=== PATIENT | male | born 1930 | race Caucasian/White ===

== ENCOUNTER 2019-01-24 06:08 | Inpatient (IN) | payer MEDICARE, OTHER ==
[2019-01-24] VITALS (7 sets, daily range): BP systolic 96–101; BP diastolic 50–55; PULSE 65–173; RESP 18; Ht 172.7 cm; Wt 53.8 kg
[~2019-01-24] VITALS: Ht 172.7 cm; Wt 53.8 kg
[2019-01-24] MEDS ORDERED: IPRATROPIUM (NEB) 0.5 MG/2.5 ML AMP INH STA (06:14)
[2019-01-24] MEDS ORDERED: ALBUTEROL 0.5% (NEB) 2.5 MG/0.5 ML AMP INH STA (06:14)
[2019-01-24] MEDS ORDERED: CEFEPIME 2GM/50 ML (PMX) 50 ML IVPB STA (06:29)
[2019-01-24] MEDS ORDERED: SODIUM CHLORIDE 0.9% 1L BAG IV* STA ×2 (06:29→07:32)
[2019-01-24] MEDS ORDERED: VANCOMYCIN 1 GM (PMX) 250 ML IVPB ONE (06:30)
--- NOTE | 2019-01-24 06:39 | ERD ---
ER Documentation Chief Complaint Chief Complaint BIBRA .39,SOB, from [facility],OSB since this AM,O2 dep,hx COPD,PNA HPI 88-year-old male with a history of COPD, was brought in by ambulance, for shortness of breath for the last 6 days, worsening today. He had a recent admission for pneumonia, he is oxygen dependent, required increasing use of his oxygenation. History is limited secondary to acuity of condition. ROS All systems reviewed and are negative except as per history of present illness. Medications Home Meds No Active Prescriptions or Reported Meds Allergies Allergies: Coded Allergies: No Known Allergy (Unverified , 11/20/15) PMhx/Soc Hx Respiratory Disorders: Yes (COPD) Hx Miscellaneous Medical Probl: Yes (BPH) Physical Exam Vitals Vital Signs Date Temp Pulse Resp B/P (MAP) Pulse Ox O2 O2 Flow FiO2 Time Delivery Rate 01/24/19 Simple 8 07:03 Mask 01/24/19 Simple 8.0 07:03 Mask 01/24/19 98.9 105 28 166/73 96 Mask 8.0 07:00 (104) 01/24/19 102 22 98 Nasal 2.0 06:24 Cannula 01/24/19 98.2 104 28 131/82 97 06:15 (98) Physical Exam Const: Thin elderly appearing male Head: Atraumatic Eyes: Normal Conjunctiva ENT: Normal External Ears, Nose and Mouth. Neck: Full range of motion. No meningismus. Resp: Breath sounds are coarse bilaterally, wheezing noted Cardio: Regular rate and rhythm, no murmurs Abd: Soft, non tender, non distended. Normal bowel sounds Skin: No petechiae or rashes Back: No midline or flank tenderness Ext: No cyanosis, or edema Neur: Awake and alert Psych: Normal Mood and Affect Result Diagram: 01/24/1940 01/24/19 0640 Results 24 hrs Laboratory Tests Test 01/24/19 06:14 01/24/19 06:37 01/24/19 06:40 Blood Gas Specimen Source Blood venous Arterial Blood Date Drawn 01/24/2019 6:32:00 AM Arterial Blood Gas VENOUS LINE Puncture Site Sukh Test N/A Venous Blood pH 7.367 Venous Blood pCO2 58.0 mmHG (Temp Corrected) Venous Blood pO2 24.1 mmHG (Temp Corrected) Venous Blood HCO3 32.6 mmol/L Venous Blood Oxygen 37.8 mmHG Saturation Venous Blood Base Excess 5.4 mmol/L Venous Blood Total 14.8 g/dl Hemoglobin Venous Blood Oxyhemoglobin 37.6 % Venous Blood Methemoglobin 0.4 % Carboxyhemoglobin 0.2 % Blood Gas Temperature 37.0 C Blood Gas Modality AEROSOL MASK FiO2 53.0 % Blood Gas Notified Whom AA Blood Gas Notified Time 01/24/2019 6:40:35 AM Lactic Acid Level 3.3 mmol/L White Blood Count 12.3 10^3/ul Red Blood Count 4.59 10^6/ul Hemoglobin 14.3 g/dl Hematocrit 43.6 % Mean Corpuscular Volume 95.0 fl Mean Corpuscular Hemoglobin 31.2 pg Mean Corpuscular 32.8 g/dl Hemoglobin Concent Red Cell Distribution Width 13.7 % Platelet Count 371 10^3/UL Mean Platelet Volume 10.4 fl Immature Granulocytes % 0.700 % Neutrophils % 84.7 % Lymphocytes % 5.4 % Monocytes % 8.7 % Eosinophils % 0.2 % Basophils % 0.3 % Nucleated Red Blood Cells % 0.0 /100WBC Immature Granulocytes # 0.090 10^3/ul Neutrophils # 10.4 10^3/ul Lymphocytes # 0.7 10^3/ul Monocytes # 1.1 10^3/ul Eosinophils # 0.0 10^3/ul Basophils # 0.0 10^3/ul Nucleated Red Blood Cells # 0.0 10^3/ul Prothrombin Time 13.0 Sec Prothrombin Time Ratio 1.0 INR International 0.97 Normalized Ratio Activated 28.9 Sec Partial Thromboplast Time Sodium Level 141 mmol/L Potassium Level 4.0 mmol/L Chloride Level 99 mmol/L Carbon Dioxide Level 30 mmol/L Anion Gap 12 Blood Urea Nitrogen 12 mg/dl Creatinine 0.76 mg/dl Est Glomerular Filtrat mL/min Rate mL/min Glucose Level 130 mg/dl Calcium Level 9.6 mg/dl Total Bilirubin 0.8 mg/dl Direct Bilirubin 0.00 mg/dl Indirect Bilirubin 0.8 mg/dl Aspartate Amino 32 IU/L Transf (AST/SGOT) Alanine 7 IU/L Aminotransferase (ALT/SGPT) Alkaline Phosphatase 81 IU/L Troponin I 0.078 ng/ml B-Type Natriuretic Peptide 3140 PG/ML Total Protein 7.4 g/dl Albumin 3.9 g/dl Globulin 3.50 g/dl Albumin/Globulin Ratio 1.11 Current Medications Medications Dose Sig/Esthela Start Time Status Last (Trade) Ordered Route PRN Stop Time Admin Dose Reason Admin Ipratropium 0.5 mg ONCE STAT 01/24/19 DC 01/24/19 [place] [facility] 06:14 06:24 (Atrovent 01/24/19 06:17 0.02% (Neb)) Albuterol 10 mg ONCE STAT 01/24/19 DC 01/24/19 (Proventil INH 06:14 06:24 0.5% (Neb)) 01/24/19 06:17 Sodium 1,000 ml BOLUS OVER 2 01/24/19 DC 01/24/19 Chloride HOURS STAT 06:29 07:21 (NS) IV* 01/24/19 06:39 Cefepime HCl 50 ml @ ONCE STAT 01/24/19 DC 01/24/19 100 mls/hr IVPB 06:29 07:21 01/24/19 06:58 Vancomycin 250 ml @ ONCE ONCE 01/24/19 HCl 125 mls/hr IVPB 06:30 01/24/19 08:29 125 mg ONCE ONCE 01/24/19 DC 01/24/19 Methylprednis IV 07:00 07:21 olone Sodium 01/24/19 07:01 Succinate (Solu-Medrol) Ondansetron 4 mg ONCE STAT 01/24/19 DC HCl (Zofran IV 07:13 Inj) 01/24/19 07:14 Ketamine 21 mg ONCE STAT 01/24/19 DC 01/24/19 HCl IV 07:13 07:23 (Ketamine 01/24/19 07:14 HCl) Sodium 1,000 ml BOLUS OVER 2 01/24/19 DC Chloride HOURS STAT 07:32 (NS) IV* 01/24/19 07:34 Procedures/MDM Is an 88-year-old male with a prior history of COPD who presents brought in from a convalescent home by EMS. On exam, patient initially appeared to be in respiratory distress, he was given nebulized treatments, as well as steroids, he spent some improvement, I noted him to have some mild agitation, and thus low-d ose ketamine was given, this improved his overall well-being. He remained he medically stable in the ED lactate of 3.3 was noted, meeting severe sepsis criteria, he had no evidence of septic shock, but given evidence of consolidation on chest x-ray, a code sepsis was initiated. He was given vancom ycin and cefepime, I did not give him the full bolus of 30 cc/kg fluid, given his age, and appearance of mild volume overload, as well as the basal natruretic peptide of 3140. Accepting Care Team: Current data and ongoing care discussed. Time: Time of admission Primary Provider: Estella Consulting: None Outstanding Data: none Sepsis Documentation: Patient's infectious symptoms have not stabilized and the patient is at risk of rapid decompensation. The patient will be admitted for careful hydration, antibiotic therapy, and infectious source control. SEVERE SEPSIS CRITERIA: Infectious source: Pneumonia End organ damage indicated by: Lactate greater than 3 SEPSIS MANAGEMENT Time of recognition of sepsis: [Upon arrival]. Time of recognition of severe sepsis: [No severe sepsis at this time]. Time of recognition of septic shock: [No septic shock at this time]. 3 HOUR BUNDLE Blood cultures x 2 before broad-spectrum antibiotics: [Yes] 30 ml/kg NS bolus [Completed] Initial lactate 3.3 Repeat lactate pending SEPTIC SHOCK ASSESSMENT: [No] lactic acid > 4.0 [No] Persistent hypotension (SBP < 90 or 40 mmHg drop, MAP < 65) despite 30 mL/ kg IV fluid bolus VOLUME REASSESSMENT FOR SEPTIC SHOCK: No evidence of septic shock CRITICAL CARE Critical care time [35] minutes Emergent fluid management while maintaining close respiratory support. Provision of immediate and broad-spectrum antibiotic therapy. Simultaneous assessment for possible sources in order to direct targeted therapy. Consideration for invasive and chemical support to prevent cardiopulmonary collapse. Critical care time is independent of procedures performed. Departure Diagnosis: Primary Impression: Shortness of breath Additional Impression: Sepsis Sepsis type: sepsis due to unspecified organism Qualified Codes: A41.9 - Sepsis, unspecified organism Condition: Stable YUN BENNETT MD Jan 24, 2019 06:38
[2019-01-24] MEDS ORDERED: METHYLPREDNISOLONE 125 MG INJ IV ONE (07:00)
[2019-01-24] MEDS ORDERED: ONDANSETRON 4 MG INJ IV STA (07:13)
[2019-01-24] MEDS ORDERED: KETAMINE HCL (50 MG/ML) 1ml syringe IV STA (07:13)
[2019-01-24] MEDS ORDERED: DOCU-159 PO (08:06)
[2019-01-24] MEDS ORDERED: FAMO20TA18 PO (08:06)
[2019-01-24] MEDS ORDERED: PHEN177S43 MT (08:07)
[2019-01-24] MEDS ORDERED: ONDA4TAB8 PO (08:08)
[2019-01-24] MEDS ORDERED: ALBU2.5V3 NEB (08:08)
[2019-01-24] MEDS ORDERED: LEVA1.257 INHALATION (08:09)
[2019-01-24] MEDS ORDERED: PANT40TA3 PO (08:10)
[2019-01-24] MEDS ORDERED: BUDE1AMP INHALATION (08:12)
[2019-01-24] MEDS ORDERED: ACET-141 PO (08:18)
[2019-01-24] MEDS ORDERED: IPRA3AMP29 INHALATION (08:19)
--- NOTE | 2019-01-24 10:07 | HP ---
Date/Time of Note Date/Time of Note DATE: 01/24/19 TIME: 10:07 Assessment/Plan VTE Prophylaxis Pharmacological prophylaxis: LMWH Lines/Catheters IV [facility] Saline Lock Assessment/Plan Hospital Course SUBJECTIVE: Lying in bed, no acute distress. Having cough. OBJECTIVE: Vital signs-see below PHYSICAL EXAM: Constitutional: Elderly male, not in acute distress. HEENT: Head atraumatic and normocephalic. Eyes: Extraocular muscles intact. Anicteric sclerae. Pupils equal bilaterally, reactive to light. NECK: Supple without lymph node. CHEST:+Rhonchi bilaterally. Mild wheezing. HEART: S1, S2. Regular rate and rhythm. ABDOMEN: Soft with no rebound tenderness. Bowel sounds were present. EXTREMITIES: Full range of motion in all the extremities. No cyanosis, clubbing or edema. NEUROLOGIC: Alert and oriented x3. No focal deficit. No sensory deficit. PSYCHOSOCIAL:+Highly temperamental. No signs of depression. INTEGUMENTARY: Moist mucous membranes. Good skin turgor, intact. ASSESSMENT AND PLAN: 88-year-old male with recent pneumonia, COPD, transferred from snf with shortness of breath, cough times 6-day duration, found to have COPD exacerbation/pneumonia and sepsis. 1. Sepsis Likely source: Pneumonia -Admit to telemetry. Cefepime, vancomycin. Obtain cultures. -Please note that this patient is also in COPD exacerbation which also contributing to lactic acidosis. 2. Pneumonia, healthcare acquired -Again, patient will be treated with cefepime and vancomycin. -Cough meds -Follow-up chest x-ray 3. COPD exacerbation -Dvhzlf-pup-mzmul and as needed bronchodilators, IV steroids -Likely contributing severity of lactic acidosis.... 4. Elevated BNP, rule out congestive heart failure. -Obtain 2D echocardiogram. 5. Constipation -Stool softeners, laxatives. If no bowel movement overnight, will give enema. DVT prophylaxis: Lovenox PUD prophylaxis: Pepcid Rest of the management depend on hospital course. Approximately 60 m spent on this history and physical. Patient was seen in collaboration with Dr. Gomez. Result Diagram: 01/24/19 0640 01/24/19 0640 Results 24hrs Laboratory Tests Test 01/24/19 06:14 01/24/19 06:37 01/24/19 06:40 01/24/19 09:08 Blood Gas Blood venous Specimen Source Arterial Blood 01/24/2019 6:32:0 Date Drawn 0 AM Arterial Blood VENOUS LINE Gas Puncture Site Sukh Test N/A Venous Blood pH 7.367 Venous Blood pCO2 58.0 H (Temp Corrected) Venous Blood pO2 24.1 L (Temp Corrected) Venous Blood HCO3 32.6 H Venous Blood 37.8 L Oxygen Saturation Venous Blood Base 5.4 H Excess Venous Blood 14.8 Total Hemoglobin Venous Blood 37.6 Oxyhemoglobin Venous Blood 0.4 Methemoglobin Carboxyhemoglobin 0.2 Blood Gas 37.0 Temperature Blood Gas AEROSOL MASK Modality FiO2 53.0 Blood Gas AA Notified Whom Blood Gas 01/24/2019 6:40:3 Notified Time 5 AM Lactic Acid Level 3.3 *H 3.0 *H White Blood Count 12.3 #H Red Blood Count 4.59 L Hemoglobin 14.3 Hematocrit 43.6 Mean Corpuscular 95.0 Volume Mean Corpuscular 31.2 Hemoglobin Mean Corpuscular 32.8 Hemoglobin Concen t Red Cell 13.7 Distribution Width Platelet Count 371 Mean Platelet 10.4 # Volume Immature 0.700 H Granulocytes % Neutrophils % 84.7 H Lymphocytes % 5.4 L Monocytes % 8.7 Eosinophils % 0.2 Basophils % 0.3 Nucleated Red 0.0 Blood Cells % Immature 0.090 H Granulocytes # Neutrophils # 10.4 H Lymphocytes # 0.7 L Monocytes # 1.1 H Eosinophils # 0.0 Basophils # 0.0 Nucleated Red 0.0 Blood Cells # Prothrombin Time 13.0 Prothrombin Time 1.0 Ratio INR International 0.97 Normalized Ratio Activated 28.9 Partial Thrombopl ast Time Sodium Level 141 Potassium Level 4.0 Chloride Level 99 Carbon Dioxide 30 Level Anion Gap 12 Blood Urea 12 Nitrogen Creatinine 0.76 Est Glomerular Filtrat Rate mL/min Glucose Level 130 Calcium Level 9.6 Total Bilirubin 0.8 Direct Bilirubin 0.00 Indirect 0.8 Bilirubin Aspartate Amino 32 Transf (AST/SGOT) Alanine 7 L Aminotransferase (ALT/SGPT) Alkaline 81 Phosphatase Troponin I 0.078 B-Type 3140 H Natriuretic Peptide Total Protein 7.4 Albumin 3.9 Globulin 3.50 H Albumin/Globulin 1.11 Ratio HPI/ROS Admit Date/Time Admit Date/Time Hx of Present Illness This is a 88-year-old male with a history of tobacco use, COPD, and recent pneumonia, was brought in from a snf with worsening shortness of breath, cough for 6-day duration. Patient denied chest pain, palpitation, nausea, vomiting, abdominal pain, chills, fever, loss of consciousness, dizziness, speech difficulties, vision changes, diarrhea, or other constitutional symptoms. He reports having constipation going on for a while. In the emergency room, patient was noted with white count 12,300, lactic acid 3.3 and BNP 3140. Vital signs stable on arrival. Patient was given IV fluids, broad-spectrum antimicrobials in the emergency room. ROS A 12 point review of system was assessed and is negative other than what is mentioned in HPI. PMH/Family/Social Past Medical History See HPI Coded Allergies: No Known Allergy (Unverified , 01/24/19) Past Surgical History AAA repair Social History Former smoker. No other alcohol/substance abuse histories. Smoking Status: Former smoker Exam/Review of Systems Vital Signs Vitals Vital Signs Date Temp Pulse Resp B/P (MAP) Pulse Ox O2 O2 Flow FiO2 Time Delivery Rate 01/24/19 97 18 109/55 92 Mask 3.0 08:11 (73) 01/24/19 98.9 07:00 YEISON PAEZ NP Jan 24, 2019 10:07
[2019-01-24] MEDS ORDERED: ONDANSETRON 4 MG INJ IV PRN (10:30)
[2019-01-24] MEDS ORDERED: ACETAMINOPHEN 325 MG TAB PO PRN (10:30)
[2019-01-24] MEDS ORDERED: MAGNESIUM HYDROXIDE 30ML CUP PO PRN (10:30)
[2019-01-24] MEDS ORDERED: NACL 0.9% 3 ML SYG IV SCH (10:30)
[2019-01-24] MEDS ORDERED: DOCUSATE SODIUM 100 MG CAP PO PRN (10:30)
[2019-01-24] MEDS ORDERED: VANCOMYCIN IV PER PHARMACY XX SCH (10:30)
--- NOTE | 2019-01-24 12:51 | RADRPT ---
Echocardiogram Report Patient Name: RONI CLARKEPatient ID: [id number] : 1930 (88y 3m)Study Date: 01/24/2019 11:06:27 AM Gender: Duartecession #: [id number] Tech: SN Location: Ref.Physician: YEISON PAEZ Height(Cm): BSA: Weight(Kg): Quality: AdequateAccount #: Procedures: Echocardiographic Report: Transthoracic echocardiogram with complete 2D, M-Mode, and doppler examination. Indications: Congestive Heart Failure. Measurements: 2D/M Mode Doppler Measurement Value Normal Range Measurement Value Normal Range LVIDd 2D 3.7 [ 4.2 - 5.8 ] cm NORAH VTI 2.0 [ 2.0 - 4.0 ] cm2 LVIDs 2D 2.5 [ 2.5 - 4.0 ] cm AV Mean Weston 1.2 [ 70.0 - 90.0 ] cm/sec LVPWd 2D 0.9 [ 0.6 - 1.0 ] cm AV Mean PG 6.0 [ 2.0 - 4.0 ] mmHg IVSd 2D 1.0 [ 0.6 - 1.0 ] cm AV VTI 35.8 cm AoR Diam 2D 2.9 [ 2.6 - 3.4 ] cm LVOT Mean Weston 0.7 [ 60.0 - 80.0 ] cm/sec EDV 2D 59.6 [ 62.0 - 150.0 ] ml LVOT Mean PG 2.0 [ 1.0 - 3.0 ] mmHg ESV 2D 22.1 [ 21.0 - 61.0 ] ml LVOT Peak Weston 1.0 [ 70.0 - 110.0 ] cm/sec EF 2D 62.9 [ 52.0 - 72.0 ] percent LVOT Peak PG 4.0 [ 2.0 - 6.0 ] mmHg LA Dimen 2D 3.2 [ 3.0 - 4.0 ] cm LVOT VTI 23.3 [ 20.0 - 30.0 ] cm LVOT Diam 2.0 [ 2.3 - 2.9 ] cm MV E Peak Weston 0.6 [ 60.0 - 130.0 ] cm/sec MV A Peak Weston 0.8 [ 100.0 - 120.0 ] cm/sec MV E/A 0.7 [ 0.8 - 1.5 ] ratio MV Decel Time 190 [ 104 - 258 ] msec Lat E` Weston 0.1 [ 10.0 - 15.0 ] cm/sec Lateral E/E` 6.5 [ 1.0 - 2.0 ] ratio MV E/A 0.7 [ 0.8 - 1.5 ] ratio TR Peak Weston 3.2 [ 100.0 - 280.0 ] cm/sec TR Peak PG 40.0 mmHg RVSP 43.0 [ 10.0 - 36.0 ] mmHg Findings: Left Ventricle: Normal left ventricular systolic function. Normal left ventricular cavity size. Normal left ventricular wall thickness. Ejection fraction is visually estimated at 65 %. Tissue Doppler/Mitral Doppler indices are consistent with impaired relaxation (Stage I diastolic dysfunction). Right Ventricle: Normal right ventricular size. Normal right ventricular systolic function. Left Atrium: The left atrium is normal in size. Right Atrium: The right atrium is normal in size. Atrial Septum: There is mild lipomatous hypertrophy of the atrial septum. Mitral Valve: Mild mitral leaflet calcification. Mild mitral annular calcification. Trace mitral regurgitation. Aortic Valve: No significant aortic stenosis or insufficiency. Aortic cusps appear mildly calcified. Tricuspid Valve: Normal appearance of the tricuspid valve. Estimated peak PA systolic pressure 43 mmHg. There is mild tricuspid regurgitation. Pericardium: Normal pericardium with no significant pericardial effusion. Aorta: Normal aortic root. IVC: Normal size and normal respiratory collapse consistent with normal right atrial pressure. Conclusions: Normal left ventricular systolic function. Normal left ventricular cavity size. Normal left ventricular wall thickness. Ejection fraction is visually estimated at 65 %. Tissue Doppler/Mitral Doppler indices are consistent with impaired relaxation (Stage I diastolic dysfunction). Normal right ventricular size. Normal right ventricular systolic function. The left atrium is normal in size. The right atrium is normal in size. Estimated peak PA systolic pressure 43 mmHg. There is mild tricuspid regurgitation. No significant valvular stenosis or regurgitation seen of remaining visualized valves. Normal pericardium with no significant pericardial effusion. Electronically Signed By: Kamar Capellan 2019-01-24 12:51:12 PDT
[2019-01-24] MEDS: IPRATROPIUM (NEB) 0.5 MG/2.5 ML AMP HHN SCH ×3 (12:59→19:50)
[2019-01-24] MEDS: LEVALBUTEROL (NEB) 1.25 MG/0.5 ML AMP HHN SCH ×3 (12:59→19:50)
[2019-01-24] MEDS: SOD CHLORIDE 0.9% 1,000 ML IV SCH ×2 (13:49→23:21)
[2019-01-24] MEDS: METHYLPREDNISOLONE 125 MG INJ IV SCH ×2 (13:49→22:06)
[2019-01-24] MEDS ORDERED: MAGNESIUM HYDROXIDE 30ML CUP PO ONE (15:30)
[2019-01-24] MEDS ORDERED: BISACODYL 30 ML ENEMA PR ONE (15:30)
[2019-01-24] MEDS ORDERED: GUAIFENESIN/DM 5ML CUP PO PRN (15:30)
[2019-01-24] MEDS ORDERED: BISACODYL (EC) 5 MG TAB PO ONE (15:30)
[2019-01-24] MEDS: FAMOTIDINE 20 MG TAB PO SCH (20:55)
[2019-01-24] MEDS: DOCUSATE SODIUM 100 MG CAP PO SCH (20:55)
[2019-01-24] MEDS: SENNA TAB PO SCH (20:56)
[2019-01-24] MEDS: CEFEPIME 1GM/50 ML (PMX) 50 ML IVPB SCH (20:56)
[2019-01-25] VITALS (7 sets, daily range): BP systolic 95–127; BP diastolic 51–60; PULSE 44–76; RESP 18–20
[2019-01-25] MEDS: LEVALBUTEROL (NEB) 1.25 MG/0.5 ML AMP HHN SCH ×4 (02:26→13:14)
[2019-01-25] MEDS: METHYLPREDNISOLONE 125 MG INJ IV SCH (05:31)
[2019-01-25] MEDS: SOD CHLORIDE 0.9% 1,000 ML IV SCH (05:32)
[2019-01-25] MEDS ORDERED: VANCOMYCIN 750 MG (PMX) 250 ML IVPB SCH (08:00)
[2019-01-25] MEDS: IPRATROPIUM (NEB) 0.5 MG/2.5 ML AMP HHN SCH ×2 (08:55→13:14)
[2019-01-25] MEDS: DOCUSATE SODIUM 100 MG CAP PO SCH (09:00)
[2019-01-25] MEDS ORDERED: ENOXAPARIN 40 MG/0.4 ML SYG SC SCH (09:00)
[2019-01-25] MEDS: SENNA TAB PO SCH (09:00)
[2019-01-25] MEDS: CEFEPIME 1GM/50 ML (PMX) 50 ML IVPB SCH (10:46)
--- NOTE | 2019-01-25 10:47 | PDOCDIS ---
Discharge Instructions CONDITION [id number] Patient Condition: [id number] Stable HOME CARE INSTRUCTIONS: [id number] Diet Instructions: [id number] Regular FOLLOW UP/APPOINTMENTS Follow-up Plan DC to [facility] YEISON PAEZ NP Jan 25, 2019 10:47
[2019-01-25] MEDS: FAMOTIDINE 20 MG TAB PO SCH (10:49)
[2019-01-25] MEDS ORDERED: PRED10TA PO (10:53)
[2019-01-25] MEDS ORDERED: SENN-120 PO (10:53)
[2019-01-25] MEDS ORDERED: LEVO500T10 PO (10:53)
[2019-01-25] MEDS ORDERED: GUAI120S25 PO (10:53)
[2019-01-25] MEDS ORDERED: TIOT18CA INHALATION (10:58)
--- NOTE | 2019-01-25 11:02 | DS ---
Date/Time of Note Date/Time of Note DATE: 01/25/19 TIME: 10:59 Discharge Summary Admission/Discharge Info Admit Date/Time Jan 24, 2019 at 07:54 Discharge Date/Time Discharge Diagnosis 1. S/P Sepsis 2/2 PNA 2. Pneumonia, healthcare acquired 3. COPD exacerbation 4. Constipation Patient Condition: Stable Procedures 01/24/2019. Chest x-ray. IMPRESSION: 1. COPD. Chronic interstitial lung disease. 2. Patchy increased density at the right base may all be due to atelectasis and scarring however acute infiltrate should be excluded. 01/24/2019. 2D echocardiogram Conclusions: Normal left ventricular systolic function. Normal left ventricular cavity size. Normal left ventricular wall thickness. Ejection fraction is visually estimated at 65 %. Tissue Doppler/Mitral Doppler indices are consistent with impaired relaxation (Stage I diastolic dysfunction). Normal right ventricular size. Normal right ventricular systolic function. The left atrium is normal in size. The right atrium is normal in size. Estimated peak PA systolic pressure 43 mmHg. There is mild tricuspid regurgitation. No significant valvular stenosis or regurgitation seen of remaining visualized valves. Normal pericardium with no significant pericardial effusion. Electronically Signed By: Kamar Capellan 2019-01-24 12:51:12 PDT Hx of Present Illness This is a 88-year-old male with a history of tobacco use, COPD, and recent pneumonia, was brought in from a residential with worsening shortness of breath, cough for 6-day duration. Patient denied chest pain, palpitation, nausea, vomiting, abdominal pain, chills, fever, loss of consciousness, dizziness, speech difficulties, vision changes, diarrhea, or other constitutional symptoms. He reports having constipation going on for a while. In the emergency room, patient was noted with white count 12,300, lactic acid 3.3 and BNP 3140. Vital signs stable on arrival. Patient was given IV fluids, broad-spectrum antimicrobials in the emergency room. Hospital Course 88-year-old male with recent pneumonia, COPD, transferred from residential with shortness of breath, cough times 6-day duration, found to have COPD exacerbation/pneumonia and sepsis. Patient was noted to have lactic acidosis in light of possible pneumonia as well as COPD exacerbation. He was managed with antimicrobials and bronchodilators. Patient did not have any further symptoms. He was given cough suppressants. Patient was not happy to be admitted at [facility] and wanted to be discharged back to the facility where he came from. At this time, patient is hemodynamically stable. Part of leukocytosis is also contributed by steroids. Patient did not have any fevers. Lung exam remained stable. No further cough. He is stable for outpatient follow-up. Approximately 60 m spent on coordinating the discharge on this patient with a Patient was seen in collaboration with Dr. Gomez. Home Meds Active Scripts Tiotropium [place]* (Spiriva*) 18 Mcg Cap.w.dev, 1 CAP INHALATION DAILY, #30 CAP Prov:PAEZYEISON V. MECHANICAL EXPERT 01/25/19 Prednisone* (Prednisone*) 10 Mg Tab, 10 MG PO DAILY for 7 Days, #10 TAB TAKE 4 PILLS DAY1 AND DAY2 TAKE 3 PILLS DAY3 AND DAY4 TAKE 2 PILLS DAY5 AND DAY6 TAKE 1 PILL DAY7 AND THEN STOP Prov:PAEZGISELAA V. MECHANICAL EXPERT 01/25/19 Levofloxacin* (Levofloxacin*) 500 Mg Tablet, 500 MG PO DAILY, #5 TAB Prov:PAEZYEISON V. MECHANICAL EXPERT 01/25/19 Sennosides* (Senna Lax*) 8.6 Mg Tablet, 2 TAB PO BID, #60 TAB Prov:PAEZGISELAA V. MECHANICAL EXPERT 01/25/19 Sqnxhbjmjjz-A-Oavmivgllw Hb* (Guaifenesin* DM Syrup) 120 Ml Syrup, 10 ML PO Q4H PRN for cough, #200 ML Prov:PAEZYEISON V. MECHANICAL EXPERT 01/25/19 Reported Medications Ipratropium-Albuterol (Ipratropium-Albuterol) 0.5-3 Mg/3 Ml Ampul.neb, 3 ML INHALATION Q6 PRN for WHEEZING AND SOB, #30 VIAL 01/24/19 Acetaminophen* (Acetaminophen*) 500 MG Extra Strength Tablet, 500 MG PO Q6 PRN for PAIN AND OR ELEVATED TEMP, TAB 01/24/19 Budesonide* (Pulmicort*) 1 Mg/2 Ml Ampul.neb, 0.5 MG INHALATION BID, #60 AMP 0.5MG/2ML 01/24/19 Pantoprazole* (Protonix*) 40 Mg Tablet.dr, 40 MG PO DAILY, TAB 01/24/19 Levalbuterol Hcl* (Levalbuterol Hcl*) 1.25 Mg/3 Ml Vial.neb, 1.25 MG INHALATION Q6H PRN for WHEEZING AND SOB, VIAL 01/24/19 Ondansetron Hcl* (Zofran*) 4 Mg Tablet, 4 MG PO Q4 PRN for NAUSEA AND OR VOMITING, TAB 01/24/19 Albuterol Sulfate* (Albuterol Sulfate* Neb) 0.083%-3 Ml Neb, 2.5 MG NEB Q4 PRN for WHEEZING AND SOB, #30 VIAL 01/24/19 Phenol* (Chloraseptic* [place]) 177 Ml [place].pump, 2 SPRAY MT BID PRN for SORE THROAT, BOTTLE 01/24/19 Famotidine* (Famotidine*) 20 Mg Tablet, 20 MG PO BID, #60 TAB 01/24/19 Docusate Sodium* (Docusate Sodium*) 100 Mg Capsule, 100 MG PO DAILY PRN for CONSTIPATION, #30 CAP 01/24/19 Follow-up Plan DC to SNF Primary Care Provider Not On Staff Doctor Pending Labs Laboratory Tests Test 01/25/19 05:48 White Blood Count 12.9 10^3/ul (4.8-10.8) Red Blood Count 3.44 10^6/ul (4.70-6.10) Hemoglobin 10.6 g/dl (14.0-18.0) Hematocrit 32.7 % (42.0-52.0) Mean Corpuscular Volume 95.1 fl (82.0-101.0) Mean Corpuscular Hemoglobin 30.8 pg (29.0-33.0) Mean Corpuscular Hemoglobin Concent 32.4 g/dl (32.0-37.0) Red Cell Distribution Width 13.6 % (11.5-14.5) Platelet Count 282 10^3/UL (140-415) Mean Platelet Volume 10.2 fl (7.4-10.4) Immature Granulocytes % 0.400 % (0.001-0.429) Neutrophils % % (39.0-77.0) Segmented Neutrophils % (Manual) 76 % (39-77) Band Neutrophils % (Manual) 14 % (0-4) Lymphocytes % % (15.0-51.0) Lymphocytes % (Manual) 8 % (15-51) Monocytes % % (0.0-11.0) Monocytes % (Manual) 1 % (0-11) Eosinophils % % (0.0-7.0) Basophils % % (0.0-2.0) Basophils % (Manual) 1 % (0-2) Nucleated Red Blood Cells % 0.0 /100WBC (0.0-0.0) Immature Granulocytes # 0.050 10^3/ul (0.0-0.031) Neutrophils # 10^3/ul (1.6-7.5) Neutrophils # (Manual) 10.0 10^3/ul (1.6-7.5) Band Neutrophils # 1.8 10^3/ul (0.0-0.6) Lymphocytes (Manual) 1.0 10^3/ul (0.8-2.9) Lymphocytes # 10^3/ul (0.8-2.9) Monocytes # 10^3/ul (0.3-0.9) Monocytes # (Manual) 0.1 10^3/ul (0.3-0.9) Eosinophils # 10^3/ul (0.0-0.5) Basophils # 10^3/ul (0.0-0.1) Basophils # (Manual) 0.1 10^3/ul (0.0-0.0) Nucleated Red Blood Cells # 10^3/ul (0.0-0.0) Platelet Estimate NORMAL Giant Platelets 2 % (0-0) Poikilocytosis 1+ (0-0) Sodium Level 139 mmol/L (135-144) Potassium Level 3.6 mmol/L (3.5-5.1) Chloride Level 102 mmol/L (97-110) Carbon Dioxide Level 31 mmol/L (21-31) Anion Gap 6 (5-13) Blood Urea Nitrogen 17 mg/dl (7-20) Creatinine 0.66 mg/dl (0.61-1.24) Est Glomerular Filtrat Rate mL/min mL/min (>60) Glucose Level 123 mg/dl (70-220) Hemoglobin A1c 5.2 % (0-5.9) Calcium Level 8.6 mg/dl (8.4-10.2) Phosphorus Level 2.6 mg/dl (2.5-4.9) Magnesium Level 2.1 mg/dl (1.7-2.5) Total Bilirubin 0.2 mg/dl (0.2-1.3) Direct Bilirubin 0.00 mg/dl (0.00-0.20) Indirect Bilirubin 0.2 mg/dl (0-1.1) Aspartate Amino Transf (AST/SGOT) 17 IU/L (15-46) Alanine Aminotransferase (ALT/SGPT) 14 IU/L (13-69) Alkaline Phosphatase 63 IU/L (42-121) Total Protein 5.6 g/dl (6.1-8.1) Albumin 2.8 g/dl (3.3-4.9) Globulin 2.80 g/dl (1.3-3.2) Albumin/Globulin Ratio 1.00 Triglycerides Level 58 mg/dl (0-149) Cholesterol Level 135 mg/dl (100-200) LDL Cholesterol, Calculated 85 mg/dl HDL Cholesterol 38 mg/dl (31-75) Cholesterol/HDL Ratio 3.5 RATIO Microbiology Date/Time Source Procedure Growth Status 01/24/19 12:30 Clean Catch Urine Urine Culture - Preliminary NO Resulted GROWTH AFTER 24 HOURS YEISON PAEZ V. MECHANICAL EXPERT Jan 25, 2019 11:02
[2019-01-25] MEDS ORDERED: METHYLPREDNISOLONE 125 MG INJ IV SCH (14:00)
[2019-01-26] MEDS ORDERED: VANCOMYCIN 750 MG (PMX) 250 ML IVPB SCH (11:00)
== END 2019-01-25 16:27 | DRG 871 ==
LOC: E/R 06:08 → 6WM 07:54
PROVIDERS: ADMIT Family Medicine; ATTEND Family Medicine
DX: A41.9 Sepsis, unspecified organism (principal); J18.9 Pneumonia, unspecified organism; J44.1 Chronic obstructive pulmonary disease with (acute) exacerbation; E87.2 Acidosis; J84.9 Interstitial pulmonary disease, unspecified; Z99.81 Dependence on supplemental oxygen; R65.20 Severe sepsis without septic shock; N40.0 Benign prostatic hyperplasia without lower urinary tract symptoms; Y95 Nosocomial condition; K59.00 Constipation, unspecified; Z87.891 Personal history of nicotine dependence
CPT/HCPCS: 36415; 71045; 80053; 80061; 82803; 83036; 83605; 83735; 83880; 84100; 84484; 85025; 85610; 85730; 87086; 93005; 93306; 94640; 94644; 94664; 96365; 96375; J0692; J1650; J2930; J3370; J7030